=== PATIENT | male | born 1945 | race Two or more races ===

== ENCOUNTER 2021-09-13 18:58 | Emergency (ER) | payer MEDICAID, MEDICARE ==
[~2021-09-13] VITALS: Ht 172.7 cm; Wt 49.9 kg
[2021-09-13 22:35] LABS: Eosinophils # (auto) 0 10 ^3/uL (0-0.8); Eosinophils % (auto) 0.2 % (0.0-7.0)
[2021-09-13 22:37] LABS: Basophils # (auto) 0 10 ^3/uL (0-0.2); Basophils % (auto) 0.4 % (0.0-2.0); Hematocrit 44.8 % (41.0-53.0); Hemoglobin 15.7 g/dL (13.5-17.5); Lymphocytes % (auto) 18.4 % (10.0-50.0); Mean Corpuscular Hemoglobin 35.1 pg (28.0-32.0); Mean Corpuscular Hgb Conc. 35.1 g/dL (32.0-36.0); Mean Corpuscular Volume 100.2 fL (80.0-100.0); Monocytes # (auto) 0.8 10 ^3/uL (0-1.3); Monocytes % (auto) 7.7 % (0.0-12.0); Neutrophils # (auto) 8.1 10 ^3/uL (1.6-8.6); Neutrophils % (auto) 73.3 % (37.0-80.0); Nucleated Red Blood Cells % 0.2 %; Red Blood Cells 4.47 10^6/uL (4.5-5.90); Red Cell Distribution Width 13.7 % (11.8-14.3)
[2021-09-13 22:51] LABS: INR 1.01 (0.9-1.15)
[2021-09-13 22:54] LABS: Albumin 3.3 g/dL (3.4-5.0); Calcium 9.8 mg/dL (8.5-10.1)
[2021-09-13 22:58] LABS: Bilirubin, Total 1.1 mg/dL (0.2-1.0); Total Protein 7.4 g/dL (6.4-8.2)
[2021-09-13 23:07] LABS: Potassium 2.7 mmol/L (3.5-5.1)
[2021-09-13] MEDS ORDERED: POTASSIUM CHL 20MEQ/100ML 100 ML IV ONE (23:30)
[2021-09-14 00:05] VITALS: BP 149/99
== END 2021-09-14 00:43 | disposition short-term general hospital (02) ==
LOC: ER 18:59
DX: S12.110A Anterior displaced Type II dens fracture, initial encounter for closed fracture (principal); M54.2 Cervicalgia; R42 Dizziness and giddiness; Z20.822 Contact with and (suspected) exposure to COVID-19; W18.39XA Other fall on same level, initial encounter; Y93.89 Activity, other specified; Y92.89 Other specified places as the place of occurrence of the external cause; Y99.8 Other external cause status
CPT/HCPCS: 36415; 70450; 72125; 80053; 85025; 85610; 87426; 96360; 99285; J3480; L0120